=== PATIENT | male | born 1980 | race Caucasian/White ===

== ENCOUNTER 2017-01-18 19:07 | Emergency (ER) | payer OTHER ==
[2017-01-18 19:33] VITALS: BP 143/92
--- NOTE | 2017-01-18 20:19 | EDM.PDOC ---
ED HPI Trauma - General Chief Complaint: Upper Extremity Injury/Pain Stated Complaint: FELL/RT SHOULDER PAIN Time Seen by Provider: 01/18/17 20:00 Source: Reports: Patient, RN notes reviewed History Limitations: Reports: No limitations - History of Present Illness INITIAL COMMENTS - FREE TEXT/NARRATIVE: Drove himself here Chief complaint Right shoulder injury HPI 36-year-old male was standing in the bed of his truck, spitting out to get down but slipped because his shoes were wet. Landed on the ground on his outstretched right arm. Pain medially in the right shoulder, as it was jammed. He is able to move her shoulder with pain particularly with certain movements. This happened about 4 PM No other injuries No analgesics taken He is right-handed Allergies/ADRs: Allergies No Known Allergies Allergy (Verified 01/18/17 19:23) Home Medications: Ambulatory Orders NK [No Known Home Meds] 01/18/17 [Confirmed 01/18/17] Past Medical History HEENT History: Reports: Otitis media Cardiovascular History: Reports: High cholesterol, Hypertension Musculoskeletal History: Reports: Fracture, Gout - Infectious Disease History Infectious Disease History: Reports: Chicken pox - Past Surgical History HEENT Surgical History: Reports: Adenoidectomy, Tonsillectomy Social & Family History - Tobacco Use Smoking Status *Q: Never Smoker - Caffeine Use Caffeine Use: Reports: Soda - Recreational Drug Use Recreational Drug Use: No Review of Systems - Review of Systems Review Of Systems: ROS reveals no pertinent complaints other than HPI. Musculoskeletal: Reports: shoulder pain (Right shoulder ), joint pain. Denies: arm pain, hand pain Skin: Reports: no symptoms Trauma Exam - Physical Exam Exam: See Below Exam Limited By: No limitations General Appearance: Reports: alert, no apparent distress, other (Normal vital signs) Head: Reports: atraumatic, normocephalic Eyes: bilateral eye: normal inspection Ears: Reports: normal external exam Nose: Reports: normal inspection Throat/Mouth: Reports: Normal inspection Neck: Reports: non-tender, full range of motion Respiratory Exam: Reports: no respiratory distress, no accessory muscle use Cardiovascular: Reports: normal peripheral pulses, regular rate, rhythm Back: Reports: full range of motion, normal inspection Extremities: Reports: normal range of motion (But with pain on full external rotation and abduction), pain with movement (Right shoulder especially with full abduction and with external rotation), other (No bony deformity, no obvious swelling or bruising) Neurologic: Reports: no motor/sensory deficits Skin: Reports: Normal color, Warm/dry - [place] Coma Score Best Eye Response ([place]): (4) open spontaneously Best Verbal Response ([place]): (5) oriented Best Motor Response ([place]): (6) obeys commands Course - Vital Signs Last Recorded V/S: Last Vital Signs Temp 36.4 C 01/18/17 19:32 Pulse 72 01/18/17 19:32 Resp 16 01/18/17 19:32 BP 143/92 H 01/18/17 19:32 Pulse Ox 98 01/18/17 19:32 - Orders/Labs/Meds Orders: Active Orders 24 hr Category Date Time Status Shoulder Comp Rt [CR] Stat Exams 01/18/17 20:02 Ordered - Re-Assessments/Exams Free Text/Narrative Re-Assessment/Exam: 01/18/17 20:18 36-year-old male with pain right shoulder following a fall on his outstretched right arm. Normal range of motion with pain at full external rotation and abduction. No visible deformity bruising swelling or skin wound. X-ray of the right shoulder 01/18/17 20:39 Negative for fracture by my interpretation Strain/sprain of the shoulder, possible rotator cuff tear but no evidence of bruising or deformity after more than 4 hours after the injury. OTC analgesics Get rechecked if pain is worsening or limitation of movement Departure - Departure Time of Disposition: 20:40 Disposition: Home, Self-Care 01 Condition: good Clinical Impression: Sprain of right shoulder Qualifiers: Encounter type: initial encounter Shoulder sprain type: rotator cuff capsule Qualified Code(s): S43.421A - Sprain of right rotator cuff capsule, initial encounter Instructions: Shoulder Range of Motion Exercises, Shoulder Sprain Forms: ED Department Discharge Additional Instructions: If needed, use nonprescription medication such as naproxen/Aleve, ibuprofen/ Motrin/Advil, or acetaminophen/Tylenol. Avoid activities that cause significant pain to her shoulder but mild pain and discomfort as part of the healing process Make sure you use your shoulder actively but do not do heavy lifting or heavy work with it until the pain improves May take several weeks to gain full strength and movement back in your shoulder Get rechecked if you're having significant pain or the pain is keeping her awake at night or you experience a sudden change in her pain. There may be a small tear of the muscles that support the shoulder, called the rotator cuff, or small tear of one of the ligaments or tendons, most likely this will heal over several weeks. See your physician/clinic if not significantly improving within the next 2 weeks - My Orders Last 24 Hours: My Active Orders 01/18/17 20:02 Shoulder Comp Rt [CR] Stat - Assessment/Plan Last 24 Hours: My Active Orders 01/18/17 20:02 Shoulder Comp Rt [CR] Stat
--- NOTE | 2017-01-19 12:35 | CR ---
Right shoulder. Findings: No evidence for fracture.
== END 2017-01-18 20:49 | disposition home or self-care (01) ==
LOC: JP.ED 19:07
DX: S43.421A Sprain of right rotator cuff capsule, initial encounter (principal); Z98.890 Other specified postprocedural states; W01.0XXA Fall on same level from slipping, tripping and stumbling without subsequent striking against object, initial encounter
CPT/HCPCS: 73030-26-RT; 73030-RT; 99284